=== PATIENT | female | born 2000 | race Caucasian/White ===

== ENCOUNTER 2020-04-09 14:45 | Emergency (ER) | payer OTHER ==
[~2020-04-09] VITALS: Ht 167.6 cm; Wt 88.5 kg
[~2020-04-09 14:45] MED LIST: DENIES; KEFLEX500 MG PO; SILVADENE20 GM TP; VICODIN 5-5001 EACH PO
[2020-04-09 15:06] VITALS: BP 150/86
[2020-04-09 16:09] LABS: URINE BILIRUBIN 1+ (Negative); URINE BLOOD 3+ (Negative); URINE CLARITY CLOUDY; URINE COLOR YELLOW; URINE GLUCOSE-RANDOM* NEGATIVE (Negative); URINE KETONES NEGATIVE (Negative); URINE NITRITE-REFLEX NEGATIVE (Negative); URINE PROTEIN (DIPSTICK) 2+ (Negative); URINE UROBILINOGEN 0.2 E.U./dl (0.2-1.0)
[2020-04-09 16:10] LABS: ICTOTEST (BILI CONFIRMATORY) Negative (Negative); URINE LEUKOCYTES-REFLEX 3+ (Negative)
[2020-04-09 16:15] LABS: URINE RBC >20 Many /HPF (0-2); URINE WBC-REFLEX >25 Many /HPF (0-5)
[2020-04-09 16:16] LABS: CASTS None Seen /LPF (None Seen); CRYSTALS None Seen /LPF (None Seen); SQUAMOUS >10 Many /LPF (0-3)
[2020-04-09] MEDS ORDERED: VALACYCLOVIR1000 MG PO (18:19)
[2020-04-09] MEDS ORDERED: NAPROSYN500 MG PO (18:19)
[2020-04-10 08:07] LABS: HAV IgM AB (ANTI-HAV IgM) Negative (Negative); HEPATITIS B SURFACE AG Negative (Negative); HEPATITIS C VIRUS AB <0.1 (0.0-0.9)
[2020-04-11 20:06] LABS: SYPHILIS AB Non Reactive (Non Reactive)
== END 2020-04-09 19:18 | disposition home or self-care (01) ==
LOC: ER 14:45
PROVIDERS: Emergency Medicine; Physician Assistant
DX: A60.00 Herpesviral infection of urogenital system, unspecified (principal); Z79.899 Other long term (current) drug therapy